=== PATIENT | male | born 1950 | race Caucasian/White ===

== ENCOUNTER 2018-07-13 14:35 | Inpatient (IN) ==
[2018-07-13] MEDS ORDERED: Vancomycin Inj 1 GM/200 ML PIGGYBACK IV.SIG ONE (18:24)
--- NOTE | 2018-07-13 18:45 | ED ---
HPI General Chief complaint: Skin/Abscess/Foreign Body Stated complaint: Medical Time Seen by Provider: 07/13/18 18:03 Source: patient and family Mode of arrival: wheelchair Limitations: no limitations History of Present Illness HPI narrative: 68-year-old male the presents to the ED for evaluation of possible infection to his chest. Per patient this started on Wednesday. Per patient he was seen in urgent care and started on Bactrim and antibiotic ointment. Per patient he continued to get worse so he went to the urgent care again today and told to come here. He has a significant history of CABG x4 on the beginning of June. Apparently on June 07, 2018. He states that his been doing well since except he had a kidney stone that had to be removed a week ago. He states that overall he has been doing well and he was cleared by his doctors to come here today told to splint application. Per patient he came here on Wednesday and ever since his been doing well except until Wednesday when the wound open it on his mid chest where he had a sternotomy. He states that it is slightly painful and there is purulent material coming out of it. Patient the pain is 4 out of 10. Per patient he has no fevers chills or sweats. He does have more discomfort in his chest. He states that the surgery was done [place] and he is currently visiting here for medication. No other medical issues at this time. No fevers chills or sweats. Related Data Home Medications Medication Instructions Recorded Confirmed atorvastatin 80 mg PO DAILY 07/13/18 07/13/18 carvedilol 6.25 mg PO BID 07/13/18 07/13/18 duloxetine 20 mg PO BID 07/13/18 07/13/18 metformin 500 mg PO BID 07/13/18 07/13/18 mupirocin calcium [Bactroban] 1 applic TOPICAL BID 07/13/18 07/13/18 nifedipine 30 mg PO DAILY 07/13/18 07/13/18 sitagliptin-metformin 1 tab PO BID 07/13/18 07/13/18 sulfamethoxazole-trimethoprim 1 tab PO BID 07/13/18 07/13/18 [Bactrim DS] Allergies Allergy/AdvReac Type Severity Reaction Status Date / Time bacitracin Allergy Rash, Verified 07/13/18 18:23 [From Neosporin Localized ([id number])] neomycin Allergy Rash, Verified 07/13/18 18:23 [From Neosporin Localized ([id number])] Penicillins Allergy Hives Verified 07/13/18 18:23 polymyxin B Allergy Rash, Verified 07/13/18 18:23 [From Neosporin Localized ([id number])] Review of Systems ROS: all other systems reviewed are negative [facility] History History Provided By: Patient Medical History Medical History Anxiety (Acute) Depression (Acute) History of kidney stones (Acute) Hypertension (Acute) Sleep apnea (Acute) Type 1 diabetes (Acute) Surgical History Surgical History S/P quadruple vessel bypass (Acute) Social History Social History Substance History: No History of Abuse Second Hand Smoke Exposure: No Smoking Status: Light tobacco smoker Tobacco Type: Cigarettes How Often Do You Have a Drink Containing Alcohol: Never Recent Travel in [facility] within the Last 8 Weeks: No Recent Out of Country Travel within the Last 8 Weeks: No Exam Narrative Exam Narrative: GENERAL: well appearing SKIN: Focused skin assessment warm/dry. Patient has an area of erythema and purulence noted on the chest on the inferior aspect of where he has a sternotomy scar. Purulence coming out of it. Tender to touch. Erythema noted around it. Patient does have green stuff coming from the wound. Cannot see the bone. Does appear to be slightly deep. HEAD: Atraumatic. Normocephalic. EYES: Pupils equal and round. No scleral icterus. No injection or drainage. ENT: No nasal bleeding or discharge. Mucous membranes pink and moist. Tongue is midline. No Uvula deviation. NECK: Trachea midline. No JVD. CARDIOVASCULAR: Regular rate and rhythm. No murmur appreciated. RESPIRATORY: No accessory muscle use. Clear to auscultation. Breath sounds equal bilaterally. GASTROINTESTINAL: Abdomen soft, non-tender, nondistended. Hepatic and splenic margins not palpable. MUSCULOSKELETAL: No obvious deformities. No clubbing. No cyanosis. No edema. Full range of motion of the upper and lower extremities bilaterally. 2+ pulses bilaterally. NEUROLOGICAL: Awake and alert. No obvious cranial nerve deficits. Motor grossly within normal limits. Normal speech. PSYCHIATRIC: Appropriate mood and affect; insight and judgment normal. Course Initial Documented Vital Signs Temperature 99.2 F 07/13/18 15:08 Pulse Rate 89 07/13/18 15:08 Respiratory Rate 16 07/13/18 15:08 Blood Pressure 100/53 L 07/13/18 15:08 Pulse Oximetry 97 07/13/18 15:08 Last Documented Vital Signs Temperature 99.2 F 07/14/18 04:00 Pulse Rate 86 07/14/18 14:19 Respiratory Rate 16 07/14/18 14:19 Blood Pressure 145/67 H 07/14/18 06:00 Pulse Oximetry 92 L 07/14/18 06:00 Medical Decision Making CRAIG Attestation CRAIG supervised visit: Yes Attestation: I, Dr. Jarvis, have reviewed the advance practice practitioner's documentation and am in agreement, met with the patient face to face, made the diagnosis, and the medical decision making was done by me. *My assessment and Findings: Patient is a 68-year-old male, on vacation, who presents with complaint of wound to his recent sternotomy site. He has been hemodynamically stable but workup is consistent with sepsis for which he has been started on broad-spectrum antibiotics. CT of the chest did not reveal fluid collection. I spoke with Dr. Gray, CT surgeon command and control specialist, who agreed with our plan for admission and antibiotics. Patient was then admitted to the ICU for further monitoring. MDM Narrative Medical decision making narrative: 68-year-old male the presents to the ED for evaluation of wound infection. Patient was properly examined and was found to have signs and symptoms consistent appears to be infected wound. Patient will start IV antibiotics. Labs and imaging ordered. Case discussed with my attending Dr. Jarvis who evaluated the patient and agrees with plan. Labs and imaging show what appears to be sepsis. CT did not show any sign of induration but does show signs of infection. Case discussed with Dr. Fields by my attending Dr. Jarvis who agrees the patient should be admitted for IV antibiotics. No surgery at this time. Case discussed with Dr. Sotelo who agrees to admission to her service. Patient was started on Zosyn and Vanco. Given pain medication. Understands reasons for admission. Medical Screen Exam Complete: Yes Emergency Medical Condition: Yes Differential Diagnosis Differential Diagnosis: Postsurgical infection versus wound infection versus abscess Medical Records Medical records reviewed: Yes I reviewed the patient's medical records. Lab Data Lab results reviewed: Yes I reviewed the patient's lab results. Result diagrams: 07/14/18 04:36 07/14/18 04:36 Lab Results 07/13/18 07/13/18 07/13/18 Range/Units 18:50 18:50 18:50 WBC 16.6 H (4.0-11.0) th/mm3 RBC 3.88 L (4.50-5.90) mil/mm3 Hgb 11.6 L (13.0-17.0) gm/dL Hct 34.9 L (39.0-51.0) % MCV 89.8 (80.0-100.0) fL MCH 29.9 (27.0-34.0) pg MCHC 33.3 (32.0-36.0) % RDW 15.1 (11.6-17.2) % Plt Count 381 (150-450) th/mm3 MPV 6.8 L (7.0-11.0) fL Prelim Diff (Auto) Neut % (Auto) 80.1 H (16.0-70.0) % Lymph % (Auto) 8.7 L (9.0-44.0) % [place] % (Auto) 10.3 H (0.0-8.0) % Eos % (Auto) 0.6 (0.0-4.0) % Baso % (Auto) 0.3 (0.0-2.0) % Neut # (Auto) 13.3 H (1.8-7.7) th/mm3 Lymph # (Auto) 1.4 (1.0-4.8) th/mm3 [place] # (Auto) 1.7 H (0.0-0.9) th/mm3 Eos # (Auto) 0.1 (0.0-0.4) th/mm3 Baso # (Auto) 0.1 (0.0-0.2) th/mm3 WBC Differential . Seg Neuts % (Manual) (16-70) % Lymphocytes % (Manual) (9-44) % Monocytes % (Manual) (0-8) % Eosinophils % (Manual) (0-4) % Basophils % (Manual) (0-2) % Abs Neuts (Manual) (1.8-7.7) th/mm3 Differential Comment Auto diff final Platelet Estimate (Normal) Platelet Morphology (Normal) RBC Morphology (Normal) PT 10.8 (9.8-11.6) sec INR 1.1 Ratio APTT 27.6 (24.3-30.1) sec Sodium 135 L (136-145) meq/L Potassium 4.8 (3.5-5.1) meq/L Chloride 103 (98-107) meq/L Carbon Dioxide 22.8 (21.0-32.0) meq/L Anion Gap 9 (5-15) meq/L BUN 20 H (7-18) mg/dL Creatinine 1.41 H (0.60-1.30) mg/dL Estimated GFR 50 L (>89) mL/min POC Glucose (68-110) mg/dl Random Glucose 120 H (74-106) mg/dL Lactic Acid (0.4-2.0) mmol/L Calcium 9.2 (8.5-10.1) mg/dL Phosphorus (2.5-4.9) mg/dL Magnesium (1.5-2.5) mg/dL Total Bilirubin 0.4 (0.2-1.0) mg/dL AST 23 (15-37) U/L ALT 15 (12-78) U/L Alkaline Phosphatase 167 H (45-117) U/L Troponin I Less than 0.02 L (0.02-0.05) ng/mL Total Protein 8.1 (6.4-8.2) g/dL Albumin 3.2 L (3.4-5.0) g/dL Prealbumin (20-40) mg/dL Nasal Screen MRSA (PCR) (Negative) 07/13/18 07/13/18 07/13/18 Range/Units 18:50 21:25 23:10 WBC (4.0-11.0) th/mm3 RBC (4.50-5.90) mil/mm3 Hgb (13.0-17.0) gm/dL Hct (39.0-51.0) % MCV (80.0-100.0) fL MCH (27.0-34.0) pg MCHC (32.0-36.0) % RDW (11.6-17.2) % Plt Count (150-450) th/mm3 MPV (7.0-11.0) fL Prelim Diff (Auto) Neut % (Auto) (16.0-70.0) % Lymph % (Auto) (9.0-44.0) % [place] % (Auto) (0.0-8.0) % Eos % (Auto) (0.0-4.0) % Baso % (Auto) (0.0-2.0) % Neut # (Auto) (1.8-7.7) th/mm3 Lymph # (Auto) (1.0-4.8) th/mm3 [place] # (Auto) (0.0-0.9) th/mm3 Eos # (Auto) (0.0-0.4) th/mm3 Baso # (Auto) (0.0-0.2) th/mm3 WBC Differential Seg Neuts % (Manual) (16-70) % Lymphocytes % (Manual) (9-44) % Monocytes % (Manual) (0-8) % Eosinophils % (Manual) (0-4) % Basophils % (Manual) (0-2) % Abs Neuts (Manual) (1.8-7.7) th/mm3 Differential Comment Platelet Estimate (Normal) Platelet Morphology (Normal) RBC Morphology (Normal) PT (9.8-11.6) sec INR Ratio APTT (24.3-30.1) sec Sodium (136-145) meq/L Potassium (3.5-5.1) meq/L Chloride (98-107) meq/L Carbon Dioxide (21.0-32.0) meq/L Anion Gap (5-15) meq/L BUN (7-18) mg/dL Creatinine (0.60-1.30) mg/dL Estimated GFR (>89) mL/min POC Glucose (68-110) mg/dl Random Glucose (74-106) mg/dL Lactic Acid 3.2 H 1.6 (0.4-2.0) mmol/L Calcium (8.5-10.1) mg/dL Phosphorus (2.5-4.9) mg/dL Magnesium (1.5-2.5) mg/dL Total Bilirubin (0.2-1.0) mg/dL AST (15-37) U/L ALT (12-78) U/L Alkaline Phosphatase (45-117) U/L Troponin I (0.02-0.05) ng/mL Total Protein (6.4-8.2) g/dL Albumin (3.4-5.0) g/dL Prealbumin (20-40) mg/dL Nasal Screen MRSA (PCR) Not detected (Negative) 07/14/18 07/14/18 07/14/18 Range/Units 04:36 04:36 04:36 WBC 22.9 H (4.0-11.0) th/mm3 RBC 3.83 L (4.50-5.90) mil/mm3 Hgb 11.2 L (13.0-17.0) gm/dL Hct 34.7 L (39.0-51.0) % MCV 90.6 (80.0-100.0) fL MCH 29.3 (27.0-34.0) pg MCHC 32.4 (32.0-36.0) % RDW 14.8 (11.6-17.2) % Plt Count 351 (150-450) th/mm3 MPV 6.3 L (7.0-11.0) fL Prelim Diff (Auto) Slide review pending Neut % (Auto) 85.1 H (16.0-70.0) % Lymph % (Auto) 4.9 L (9.0-44.0) % [place] % (Auto) 9.7 H (0.0-8.0) % Eos % (Auto) 0.1 (0.0-4.0) % Baso % (Auto) 0.2 (0.0-2.0) % Neut # (Auto) 19.5 H (1.8-7.7) th/mm3 Lymph # (Auto) 1.1 (1.0-4.8) th/mm3 [place] # (Auto) 2.2 H (0.0-0.9) th/mm3 Eos # (Auto) 0.0 (0.0-0.4) th/mm3 Baso # (Auto) 0.0 (0.0-0.2) th/mm3 WBC Differential Manual diff final Seg Neuts % (Manual) 89 H (16-70) % Lymphocytes % (Manual) 4 L (9-44) % Monocytes % (Manual) 5 (0-8) % Eosinophils % (Manual) 1 (0-4) % Basophils % (Manual) 1 (0-2) % Abs Neuts (Manual) 20.4 H (1.8-7.7) th/mm3 Differential Comment . Platelet Estimate Normal (Normal) Platelet Morphology Normal (Normal) RBC Morphology Normal (Normal) PT 11.0 (9.8-11.6) sec INR 1.1 Ratio APTT 28.2 (24.3-30.1) sec Sodium 143 (136-145) meq/L Potassium 4.1 (3.5-5.1) meq/L Chloride 108 H (98-107) meq/L Carbon Dioxide 25.4 (21.0-32.0) meq/L Anion Gap 10 (5-15) meq/L BUN 18 (7-18) mg/dL Creatinine 1.17 (0.60-1.30) mg/dL Estimated GFR 62 L (>89) mL/min POC Glucose (68-110) mg/dl Random Glucose 135 H (74-106) mg/dL Lactic Acid (0.4-2.0) mmol/L Calcium 8.1 L D (8.5-10.1) mg/dL Phosphorus 3.7 (2.5-4.9) mg/dL Magnesium 2.1 (1.5-2.5) mg/dL Total Bilirubin 0.5 (0.2-1.0) mg/dL AST 10 L (15-37) U/L ALT 12 (12-78) U/L Alkaline Phosphatase 147 H (45-117) U/L Troponin I (0.02-0.05) ng/mL Total Protein 7.1 D (6.4-8.2) g/dL Albumin 2.9 L (3.4-5.0) g/dL Prealbumin 13 L (20-40) mg/dL Nasal Screen MRSA (PCR) (Negative) 07/14/18 07/14/18 07/14/18 Range/Units 04:36 08:00 13:13 WBC (4.0-11.0) th/mm3 RBC (4.50-5.90) mil/mm3 Hgb (13.0-17.0) gm/dL Hct (39.0-51.0) % MCV (80.0-100.0) fL MCH (27.0-34.0) pg MCHC (32.0-36.0) % RDW (11.6-17.2) % Plt Count (150-450) th/mm3 MPV (7.0-11.0) fL Prelim Diff (Auto) Neut % (Auto) (16.0-70.0) % Lymph % (Auto) (9.0-44.0) % [place] % (Auto) (0.0-8.0) % Eos % (Auto) (0.0-4.0) % Baso % (Auto) (0.0-2.0) % Neut # (Auto) (1.8-7.7) th/mm3 Lymph # (Auto) (1.0-4.8) th/mm3 [place] # (Auto) (0.0-0.9) th/mm3 Eos # (Auto) (0.0-0.4) th/mm3 Baso # (Auto) (0.0-0.2) th/mm3 WBC Differential Seg Neuts % (Manual) (16-70) % Lymphocytes % (Manual) (9-44) % Monocytes % (Manual) (0-8) % Eosinophils % (Manual) (0-4) % Basophils % (Manual) (0-2) % Abs Neuts (Manual) (1.8-7.7) th/mm3 Differential Comment Platelet Estimate (Normal) Platelet Morphology (Normal) RBC Morphology (Normal) PT (9.8-11.6) sec INR Ratio APTT (24.3-30.1) sec Sodium (136-145) meq/L Potassium (3.5-5.1) meq/L Chloride (98-107) meq/L Carbon Dioxide (21.0-32.0) meq/L Anion Gap (5-15) meq/L BUN (7-18) mg/dL Creatinine (0.60-1.30) mg/dL Estimated GFR (>89) mL/min POC Glucose 140 H 125 H (68-110) mg/dl Random Glucose (74-106) mg/dL Lactic Acid 0.7 (0.4-2.0) mmol/L Calcium (8.5-10.1) mg/dL Phosphorus (2.5-4.9) mg/dL Magnesium (1.5-2.5) mg/dL Total Bilirubin (0.2-1.0) mg/dL AST (15-37) U/L ALT (12-78) U/L Alkaline Phosphatase (45-117) U/L Troponin I (0.02-0.05) ng/mL Total Protein (6.4-8.2) g/dL Albumin (3.4-5.0) g/dL Prealbumin (20-40) mg/dL Nasal Screen MRSA (PCR) (Negative) 07/14/18 Range/Units 16:20 WBC (4.0-11.0) th/mm3 RBC (4.50-5.90) mil/mm3 Hgb (13.0-17.0) gm/dL Hct (39.0-51.0) % MCV (80.0-100.0) fL MCH (27.0-34.0) pg MCHC (32.0-36.0) % RDW (11.6-17.2) % Plt Count (150-450) th/mm3 MPV (7.0-11.0) fL Prelim Diff (Auto) Neut % (Auto) (16.0-70.0) % Lymph % (Auto) (9.0-44.0) % [place] % (Auto) (0.0-8.0) % Eos % (Auto) (0.0-4.0) % Baso % (Auto) (0.0-2.0) % Neut # (Auto) (1.8-7.7) th/mm3 Lymph # (Auto) (1.0-4.8) th/mm3 [place] # (Auto) (0.0-0.9) th/mm3 Eos # (Auto) (0.0-0.4) th/mm3 Baso # (Auto) (0.0-0.2) th/mm3 WBC Differential Seg Neuts % (Manual) (16-70) % Lymphocytes % (Manual) (9-44) % Monocytes % (Manual) (0-8) % Eosinophils % (Manual) (0-4) % Basophils % (Manual) (0-2) % Abs Neuts (Manual) (1.8-7.7) th/mm3 Differential Comment Platelet Estimate (Normal) Platelet Morphology (Normal) RBC Morphology (Normal) PT (9.8-11.6) sec INR Ratio APTT (24.3-30.1) sec Sodium (136-145) meq/L Potassium (3.5-5.1) meq/L Chloride (98-107) meq/L Carbon Dioxide (21.0-32.0) meq/L Anion Gap (5-15) meq/L BUN (7-18) mg/dL Creatinine (0.60-1.30) mg/dL Estimated GFR (>89) mL/min POC Glucose 131 H (68-110) mg/dl Random Glucose (74-106) mg/dL Lactic Acid (0.4-2.0) mmol/L Calcium (8.5-10.1) mg/dL Phosphorus (2.5-4.9) mg/dL Magnesium (1.5-2.5) mg/dL Total Bilirubin (0.2-1.0) mg/dL AST (15-37) U/L ALT (12-78) U/L Alkaline Phosphatase (45-117) U/L Troponin I (0.02-0.05) ng/mL Total Protein (6.4-8.2) g/dL Albumin (3.4-5.0) g/dL Prealbumin (20-40) mg/dL Nasal Screen MRSA (PCR) (Negative) Imaging Data Attestation: I personally reviewed and interpreted this imaging study as follows : Radiologist's impression: Chest X-Ray 07/13/18 18:24 CONCLUSION: 1. Intact median sternotomy wires. 2. Mild bibasilar airspace disease, likely atelectasis. Chest CT 07/13/18 18:26 CONCLUSION: 1. Scattered areas of suspected atelectasis or consolidation as described above being more prominent on the left. 2. Induration in subcutaneous fat anteriorly over the sternal region. This can be correlated with the timing of the prior sternotomy. A focal fluid collection or abscess is not seen. 3. Nonspecific mildly prominent lymph node in the left tracheobronchial region. It is thought this could be followed. 4. Mild hiatal hernia. Discharge Plan Discharge Disposition Patient Disposition: 30 Still Patient Discharge Details Diagnosis: Sepsis, Postoperative infection of wound of sternum Physicians Team ED Provider: Margo Jarvis ED Midlevel Provider: Zeb Edouard Primary Care Provider: Primary Care Physici,No Attending Provider: Oracio Malloy Other Providers: Wilber Lynn Cary Status ED Status: Left Department Discharge Information Discharge Date/Time: 07/13/18 23:10
[2018-07-13] MEDS ORDERED: Vancomycin Inj 1,000 MG in Sodium Chlor 0.9% Inj 250 ML IV.SIG ONE (19:00)
--- NOTE | 2018-07-13 19:21 | XR ---
EXAM DATE: 07/13/2018 6:24 PM EDT AGE/SEX: 68 years / Male INDICATIONS: Patient had CABG 5 weeks ago. Complains of incision opening and pain near incision. CLINICAL DATA: This is the patient's initial encounter. Patient reports that signs and symptoms have been present for 1 day and indicates a pain score of 6/10. MEDICAL/SURGICAL HISTORY: None. CABG. COMPARISON: No prior exams available for comparison. FINDINGS: Median sternotomy wires which appear intact. Minimal bibasilar airspace disease. No pneumothorax. Car diomediastinal contours are within normal limits. Bony thorax is intact. CONCLUSION: 1. Intact median sternotomy wires. 2. Mild bibasilar airspace disease, likely atelectasis. Electronically signed by: Angel Mendez MD 07/13/2018 7:19 PM EDT
[2018-07-13 19:29] LABS: Baso # (Auto) 0.1 th/mm3 (0.0-0.2); Baso % (Auto) 0.3 % (0.0-2.0); Eos # (Auto) 0.1 th/mm3 (0.0-0.4); Eos % (Auto) 0.6 % (0.0-4.0); Hematocrit 34.9 % (39.0-51.0); Hemoglobin 11.6 gm/dL (13.0-17.0); Lymph # (Auto) 1.4 th/mm3 (1.0-4.8); Lymph % (Auto) 8.7 % (9.0-44.0); Mean Corpuscular HGB Conc 33.3 % (32.0-36.0); Mean Corpuscular Hemoglobin 29.9 pg (27.0-34.0); Mean Corpuscular Volume 89.8 fL (80.0-100.0); Mean Platelet Volume 6.8 fL (7.0-11.0); Mono # (Auto) 1.7 th/mm3 (0.0-0.9); Mono % (Auto) 10.3 % (0.0-8.0); Neut # (Auto) 13.3 th/mm3 (1.8-7.7); Neut % (Auto) 80.1 % (16.0-70.0); Platelet Count 381 th/mm3 (150-450); Red Blood Count 3.88 mil/mm3 (4.50-5.90); Red Cell Distribution Width 15.1 % (11.6-17.2); White Blood Count 16.6 th/mm3 (4.0-11.0)
[2018-07-13] MEDS ORDERED: Morphine Inj 4 MG/ML Vial IV.PUSH ONE (19:32)
[2018-07-13 19:39] LABS: Activated Partial Thrombo Time 27.6 sec (24.3-30.1); INR 1.1 Ratio; Prothrombin Time 10.8 sec (9.8-11.6)
[2018-07-13 19:41] LABS: Alanine Aminotransferase 15 U/L (12-78)
[2018-07-13 19:45] LABS: Alkaline Phosphatase 167 U/L (45-117); Total Protein 8.1 g/dL (6.4-8.2)
[2018-07-13 19:54] LABS: Albumin 3.2 g/dL (3.4-5.0); Anion Gap 9 meq/L (5-15); Aspartate Aminotransferase 23 U/L (15-37); Blood Urea Nitrogen 20 mg/dL (7-18); Calcium 9.2 mg/dL (8.5-10.1); Carbon Dioxide 22.8 meq/L (21.0-32.0); Chloride 103 meq/L (98-107); Glomerular Filtration Rate 50 mL/min (>89); Glucose,Random 120 mg/dL (74-106); Potassium 4.8 meq/L (3.5-5.1); Sodium 135 meq/L (136-145)
[2018-07-13] MEDS ORDERED: Sodium Chlor 0.9% Inj 500 ML IV.SIG SCH (20:00)
[2018-07-13] MEDS ORDERED: HYDROmorphone PF Inj 2 MG/ML Vial IV.PUSH ONE (20:53)
--- NOTE | 2018-07-13 20:55 | CT ---
EXAM DATE: 07/13/2018 8:13 PM EDT AGE/SEX: 68 years / Male INDICATIONS: Left side chest and epigastric pain. CLINICAL DATA: This is the patient's initial encounter. Patient reports that signs and symptoms have been present for 3 days and indicates a pain score of 4/10. MEDICAL/SURGICAL HISTORY: Hypertension. Diabetes. CABG. RADIATION DOSE: 17.40 CTDI (mGy) COMPARISON: No prior exams available for comparison. TECHNIQUE: Multiple contiguous axial images were obtained through the chest during bolus infusion of 40 ml Omnipaque 350 (iohexol) nonionic water-soluble contrast as a single exam dose. Images were obtained in suspended respiration using multiple row detector helical technique. Using automated exp osure control and adjustment of the mA and/or kV according to patient size, radiation dose was kept a s low as reasonably achievable to obtain optimal diagnostic quality images. DICOM format image data is available electronically for review and comparison. FINDINGS: Lungs: There is mild increased density at the posterior lateral left upper lung. There is increased linear density seen in the left lingula. There is consolidation or atelectasis at the posterior lower lobes bilaterally being more prominent on the left. Mediastinum: The patient is status post sternotomy. Calcifications are seen at the [place] coronary a rteries. There is a mildly prominent lymph nodes in the left tracheobronchial region measuring 1.7 x 0.9 cm. This is nonspecific. Pleurae: There is a minimal left pleural effusion. Axillae: Unremarkable. Bony Structures: Unremarkable. Miscellaneous: The examination was extended to include the upper abdomen, and both adrenal glands ar e normal in size and configuration. There is induration seen in the subcutis fat anterior to the ster num. There is a mild hiatal hernia present. CONCLUSION: 1. Scattered areas of suspected atelectasis or consolidation as described above being more prominent on the left. 2. Induration in subcutaneous fat anteriorly over the sternal region. This can be correlated with th e timing of the prior sternotomy. A focal fluid collection or abscess is not seen. 3. Nonspecific mildly prominent lymph node in the left tracheobronchial region. It is thought this c ould be followed. 4. Mild hiatal hernia. Electronically signed by: Willy Juarez MD 07/13/2018 8:54 PM EDT
--- NOTE | 2018-07-13 21:41 | P.HPCC ---
History of Present Illness Primary Care Physician: No Primary Care Physician History of Present Illness: 68-year-old male the presents for evaluation of possible infection to his chest. Per patient this started on Wednesday. Per patient he was seen in urgent care and started on Bactrim and antibiotic ointment. Per patient he continued to get worse so he went to the urgent care again today and told to come here. He has a significant history of CABG x4 in the beginning of June 07, 2018. He states that his been doing well since except he had a kidney stone that had to be removed a week ago. He states that overall he has been doing well and he was cleared by his doctors to come here today told to splint application. Per patient he came here on Wednesday and ever since his been doing well except until Wednesday when the wound open it on his mid chest where he had a sternotomy. He states that it is slightly painful and there is purulent material coming out of it. Patient the pain is 4 out of 10. Per patient he has no fevers chills or sweats. He does have more discomfort in his chest. He states that the surgery [place] and he is currently visiting here for medication. No other medical issues at this time. No fevers chills or sweats. Inpatient Certification: I certify that the inpatient services were ordered in accordance with Medicare regulations governing the order. This includes certification that hospital inpatient services are reasonable and necessary and in the case of services not specified as inpatient-only under 42 CFR 419.22(n), that they are appropriately provided as inpatient services in accordance to with the 2-midnight benchmark under 43 CFR 412.3(e) Review of Systems All other systems reviewed negative except as stated in HPI PMFSH - History History Provided By: Patient - Medical History Medical History: Medical History (Last Updated 07/13/18 @ 20:00 by Marce Singh RN) Anxiety Depression History of kidney stones Hypertension Sleep apnea Type 1 diabetes - Surgical History Surgical History: Surgical History (Last Updated 07/13/18 @ 19:11 by Shanice Hobson RN) S/P quadruple vessel bypass - Tobacco History Tobacco Use In Past 30 Days: No Smoking Status: Light tobacco smoker Tobacco Type: Cigarettes - Alcohol History How Often Do You Have a Drink Containing Alcohol: Never - Substance Use History Substance History: No History of Abuse - Travel History Recent Travel in the [facility] Within the Last 8 Weeks: No Recent Travel Out of the Country Within the Last 8 Weeks: No - Immunization History Tetanus Immunization: >5 Years Medications and Allergies Active Medications: Active Medications Sodium Chloride (Ns Inj) 500 mls @ 0 mls/hr IV.SIG BOLUS BERNABE Last Infusion: 07/13/18 21:24 Dose: Infused Allergies Allergy/AdvReac Type Severity Reaction Status Date / Time bacitracin Allergy Rash, Verified 07/13/18 18:23 [From Neosporin Localized ([id number])] neomycin Allergy Rash, Verified 07/13/18 18:23 [From Neosporin Localized ([id number])] Penicillins Allergy Hives Verified 07/13/18 18:23 polymyxin B Allergy Rash, Verified 07/13/18 18:23 [From Neosporin Localized ([id number])] Home Medications Medication Instructions Recorded Confirmed Type atorvastatin 80 mg PO DAILY 07/13/18 07/13/18 History carvedilol 6.25 mg PO BID 07/13/18 07/13/18 History duloxetine 20 mg PO BID 07/13/18 07/13/18 History metformin 500 mg PO BID 07/13/18 07/13/18 History mupirocin calcium [Bactroban] 1 applic TOPICAL BID 07/13/18 07/13/18 History nifedipine 30 mg PO DAILY 07/13/18 07/13/18 History sitagliptin-metformin 1 tab PO BID 07/13/18 07/13/18 History sulfamethoxazole-trimethoprim 1 tab PO BID 07/13/18 07/13/18 History [Bactrim DS] Results - Labs CBC & Chem 7: 07/13/18 18:50 07/13/18 18:50 Labs: Short CBC 07/13/18 Range/Units 18:50 WBC 16.6 H (4.0-11.0) th/mm3 Hgb 11.6 L (13.0-17.0) gm/dL Hct 34.9 L (39.0-51.0) % Plt Count 381 (150-450) th/mm3 BMP 07/13/18 18:50 Sodium 135 L Potassium 4.8 Chloride 103 Carbon Dioxide 22.8 BUN 20 H Creatinine 1.41 H Calcium 9.2 Cardiac Enzymes 07/13/18 Range/Units 18:50 Troponin I Less than 0.02 L (0.02-0.05) ng/mL Liver Function 07/13/18 Range/Units 18:50 Total Bilirubin 0.4 (0.2-1.0) mg/dL AST 23 (15-37) U/L ALT 15 (12-78) U/L Alkaline Phosphatase 167 H (45-117) U/L Albumin 3.2 L (3.4-5.0) g/dL - Imaging Impressions Chest X-Ray 07/13/18 18:24 CONCLUSION: 1. Intact median sternotomy wires. 2. Mild bibasilar airspace disease, likely atelectasis. Chest CT 07/13/18 18:26 CONCLUSION: 1. Scattered areas of suspected atelectasis or consolidation as described above being more prominent on the left. 2. Induration in subcutaneous fat anteriorly over the sternal region. This can be correlated with the timing of the prior sternotomy. A focal fluid collection or abscess is not seen. 3. Nonspecific mildly prominent lymph node in the left tracheobronchial region. It is thought this could be followed. 4. Mild hiatal hernia. Exam Vital signs: Vital Signs 07/13/18 15:08 07/13/18 18:24 07/13/18 19:45 Temperature 99.2 F Pulse Rate 89 98 H Respiratory Rate 16 16 Blood Pressure 100/53 L 170/82 H Pulse Oximetry 97 95 95 07/13/18 21:28 Temperature Pulse Rate 98 H Respiratory Rate 18 Blood Pressure 156/66 H Pulse Oximetry 97 Intake & Output 07/13/18 07/13/18 07/14/18 06:59 18:59 06:59 Intake Total 850 / 850 Balance 850 / 850 Weight 112 kg Intake: IV 850 / 850 Maxipime Inj 1,000 MG In NS Inj 100 / 100 100 ML @ 200 mls/hr IV.SIG ONCE ONE Rx#:[id number] NS Inj 500 ML @ Wide Open IV. 500 / 500 SIG BOLUS BERNABE Rx#:[id number] Vancomycin Inj 1,000 MG In NS 250 / 250 Inj 250 ML @ 250 mls/hr IV.SIG ONCE ONE Rx#:[id number] - Constitutional no acute distress - Routine HEENT Exam Head: Present: normocephalic, atraumatic - Routine Neck Exam Present: supple, full ROM, normal carotid upstroke. Absent: JVD, carotid bruit - Routine Respiratory Exam Absent: accessory muscle use, rhonchi, stridor, wheezes, crackles - Routine Cardiovascular Exam Present: RRR, S1, S2 - Routine Abdominal Exam Present: soft, normoactive bowel sounds. Absent: tenderness, distended, rebound - Routine Extremities Exam Absent: cyanosis, clubbing, edema - Routine Skin Exam Present: intact. Absent: cyanosis - Routine Neurological Exam Present: alert, oriented X3, moving all extremities Septic Shock Reassessment Septic shock perfusion: reassessment completed Caprini VTE Risk Assessment Caprini VTE Risk Assessment: Moderate/High Risk (score >= 2) Caprini Risk Assessment Model: Point Value = 1 Point Value = 2 Point Value = 3 Point Value = 5 Age 41-60 Minor surgery BMI > 25 kg/m2 Swollen legs Varicose veins or History of unexplained or recurrent spontaneous Oral contraceptives or hormone replacement Sepsis (< 1 month) Serious lung disease, including pneumonia (< 1 month) Abnormal pulmonary function Acute myocardial infarction Congestive heart failure (< 1 month) History of inflammatory bowel disease Medical patient at bed rest Age 61-74 Arthroscopic surgery Major open surgery (> 45 min) Laparoscopic surgery (> 45 min) Malignancy Confined to bed (> 72 hours) Immobilizing plaster cast Central venous access Age >= 75 History of VTE Family history of VTE Factor V Leiden Prothrombin [id number] Lupus anticoagulant Anticardiolipin antibodies Elevated serum homocysteine Heparin-induced thrombocytopenia Other congenital or acquired thrombophilia Stroke (< 1 month) Elective arthroplasty Hip, pelvis, or leg fracture Acute spinal cord injury (< 1 month) Prophylaxis Regimen: Total Risk Factor Score Risk Level Prophylaxis Regimen 0-1 Low Early ambulation 2 Moderate Order ONE of the following: *Sequential Compression Device (SCD) *Heparin 5000 units SQ BID 3-4 Higher Order ONE of the following medications: *Heparin 5000 units SQ TID *Enoxaparin/Lovenox 40 mg SQ daily (WT < 150 kg, CrCl > 30 mL/min) *Enoxaparin/Lovenox 30 mg SQ daily (WT < 150 kg, CrCl > 10-29 mL/min) *Enoxaparin/Lovenox 30 mg SQ BID (WT < 150 kg, CrCl > 30 mL/min) AND/OR *Sequential Compression Device (SCD) 5 or more Highest Order ONE of the following medications: *Heparin 5000 units SQ TID (Preferred with Epidurals) *Enoxaparin/Lovenox 40 mg SQ daily (WT < 150 kg, CrCl > 30 mL/min) *Enoxaparin/Lovenox 30 mg SQ daily (WT < 150 kg, CrCl > 10-29 mL/min) *Enoxaparin/Lovenox 30 mg SQ BID (WT < 150 kg, CrCl > 30 mL/min) AND *Sequential Compression Device (SCD) Assessment and Plan - Assessment and Plan Plan: Sternal wound infection -Cefepime and vancomycin -Blood cultures to follow -De-escalate antibiotics per sensitivity -Infectious disease consultation Coronary artery disease -Status post CABG 06/2018 -Atorvastatin -Coreg Depressions -Cymbalta Diabetes mellitus -Lantus and insulin sliding scale DVT GI prophylaxis -Teds SCDs -Early aggressive mobilization -Lovenox -Pepcid 35 minutes of critical care
[2018-07-13] MEDS ORDERED: Acetaminophen 325 MG Tablet PO PRN (21:42)
[2018-07-13] MEDS ORDERED: Temazepam 15 MG Capsule PO PRN (21:42)
[2018-07-13] MEDS ORDERED: Bisacodyl 10 MG Supp RECTAL PRN (21:42)
[2018-07-13] MEDS ORDERED: Vancomycin Consult Pharmacy OTHER PRN (21:49)
[2018-07-13] MEDS ORDERED: Dextrose 50% in Water 50 ML Vial IV.PUSH PRN (21:51)
[2018-07-13] MEDS: Sod Chloride 0.9% Inj 1,000 ML IV.CONT SCH (22:42)
[2018-07-14] MEDS: Enoxaparin Inj 40 MG/0.4 ML Syringe SQ SCH ×2 (00:57→22:47)
[2018-07-14] MEDS ORDERED: Vancomycin Inj 1,500 MG in Sodium Chlor 0.9% Inj 500 ML IV.SIG ONE (01:00)
[2018-07-14] MEDS: HYDROmorphone PF Inj 2 MG/ML Vial IV.PUSH PRN ×3 (02:57→21:06)
[2018-07-14] MEDS: Chlorhexidine Gluconate 2% 1 Pack (2 Cloths) TOPICAL SCH (03:00)
[2018-07-14] MEDS ORDERED: Chlorhexidine Gluconate 2% 1 Pack (2 Cloths) TOPICAL PRN (04:00)
[2018-07-14 04:54] LABS: Baso % (Auto) 0.2 % (0.0-2.0); Eos % (Auto) 0.1 % (0.0-4.0); Hematocrit 34.7 % (39.0-51.0); Hemoglobin 11.2 gm/dL (13.0-17.0); Lymph # (Auto) 1.1 th/mm3 (1.0-4.8); Lymph % (Auto) 4.9 % (9.0-44.0); Mean Corpuscular HGB Conc 32.4 % (32.0-36.0); Mean Corpuscular Hemoglobin 29.3 pg (27.0-34.0); Mean Corpuscular Volume 90.6 fL (80.0-100.0); Mean Platelet Volume 6.3 fL (7.0-11.0); Mono # (Auto) 2.2 th/mm3 (0.0-0.9); Mono % (Auto) 9.7 % (0.0-8.0); Neut # (Auto) 19.5 th/mm3 (1.8-7.7); Neut % (Auto) 85.1 % (16.0-70.0); Platelet Count 351 th/mm3 (150-450); Red Blood Count 3.83 mil/mm3 (4.50-5.90); Red Cell Distribution Width 14.8 % (11.6-17.2); White Blood Count 22.9 th/mm3 (4.0-11.0)
[2018-07-14 05:05] LABS: Activated Partial Thrombo Time 28.2 sec (24.3-30.1); INR 1.1 Ratio
[2018-07-14 05:19] LABS: Alanine Aminotransferase 12 U/L (12-78); Albumin 2.9 g/dL (3.4-5.0); Anion Gap 10 meq/L (5-15); Aspartate Aminotransferase 10 U/L (15-37); Blood Urea Nitrogen 18 mg/dL (7-18); Calcium 8.1 mg/dL (8.5-10.1); Carbon Dioxide 25.4 meq/L (21.0-32.0); Chloride 108 meq/L (98-107); Glomerular Filtration Rate 62 mL/min (>89); Glucose,Random 135 mg/dL (74-106); Magnesium 2.1 mg/dL (1.5-2.5); Phosphorus 3.7 mg/dL (2.5-4.9); Potassium 4.1 meq/L (3.5-5.1); Sodium 143 meq/L (136-145)
[2018-07-14] MEDS: Sod Chloride 0.9% Inj 1,000 ML IV.CONT SCH (05:19)
[2018-07-14 05:24] LABS: Alkaline Phosphatase 147 U/L (45-117); Prealbumin 13 mg/dL (20-40); Total Protein 7.1 g/dL (6.4-8.2)
[2018-07-14 08:05] LABS: Eosinophils 1 % (0-4); Lymphocytes 4 % (9-44); Monocytes 5 % (0-8); Platelet Estimate Normal (Normal); Platelet Morphology Normal (Normal); RBC Morphology Normal (Normal)
[2018-07-14] MEDS: Insulin NovoLOG Aspart Correctional Sugar Inj SQ SCH ×4 (10:23→21:15)
[2018-07-14] MEDS: Carvedilol 6.25 MG Tablet PO SCH ×2 (10:24→21:08)
[2018-07-14] MEDS: Insulin Detemir Inj 1,000 UNIT/10 ML Vial SQ SCH (10:24)
[2018-07-14] MEDS: Senna/Docusate Sodium 8.6/50 MG Tablet PO SCH ×2 (10:25→21:12)
--- NOTE | 2018-07-14 10:32 | P.PN ---
Subjective Interval history: Follow-up for possible sternal wound infection. Patient is currently doing well. He underwent CABG in [facility] on June 07, 2018. He came to [place] for vacation. Currently patient is resting in bed. Denies any chest pain, shortness of breath, fever or chills. Physical Exam Vital signs: Vital Signs 07/13/18 15:08 07/13/18 18:24 07/13/18 19:45 Temperature 99.2 F Pulse Rate 89 98 H Respiratory Rate 16 16 Blood Pressure 100/53 L 170/82 H Pulse Oximetry 97 95 95 07/13/18 21:28 07/13/18 22:07 07/14/18 00:00 Temperature 99.1 F Pulse Rate 98 H 100 H 98 H Respiratory Rate 18 18 28 H Blood Pressure 156/66 H 160/70 H 153/79 H Pulse Oximetry 97 95 92 L 07/14/18 01:00 07/14/18 02:00 07/14/18 03:00 Temperature Pulse Rate 101 H 105 H 101 H Respiratory Rate 30 H 34 H 24 Blood Pressure 159/72 H 159/72 H 147/67 H Pulse Oximetry 95 94 L 92 L 07/14/18 04:00 07/14/18 05:00 07/14/18 06:00 Temperature 99.2 F Pulse Rate 101 H 98 H 101 H Respiratory Rate 20 20 32 H Blood Pressure 147/68 H 136/66 145/67 H Pulse Oximetry 92 L 93 L 92 L Intake & Output 07/13/18 07/14/18 07/14/18 18:59 06:59 18:59 Intake Total 2480 / 2480 Output Total 400 / 400 Balance 2080 / 2080 Weight 112 kg 121.4 kg Intake: IV 2480 / 2480 NS Inj 1,000 ML @ 124 mls/hr IV 1000 / 1000 .CONT .Q8H4M BERNABE Rx#:[id number] Maxipime Inj 1,000 MG In NS Inj 100 / 100 100 ML @ 200 mls/hr IV.SIG ONCE ONE Rx#:[id number] Maxipime Inj 2,000 MG In NS Inj 100 / 100 100 ML @ 200 mls/hr IV.SIG Q12H BERNABE Rx#:[id number] NS Inj 500 ML @ Wide Open IV. 500 / 500 SIG BOLUS BERNABE Rx#:[id number] Vancomycin Inj 1,000 MG In NS 250 / 250 Inj 250 ML @ 250 mls/hr IV.SIG ONCE ONE Rx#:[id number] Vancomycin Inj 1,500 MG In NS 530 / 530 Inj 500 ML @ 265 mls/hr IV.SIG ONCE ONE Rx#:[id number] Output: Urine 400 / 400 Other: # Bowel Movements 0 Weight On Admission 121.5 kg Narrative: GENERAL: Alert, oriented x3, NAD. SKIN: Warm and dry. Distal part of the sternal wound has a dressing on and some drainage noted. HEAD: Normocephalic. EYES: No scleral icterus. No injection or drainage. NECK: Supple, trachea midline. No JVD or lymphadenopathy. CARDIOVASCULAR: Regular rate and rhythm without murmurs, gallops, or rubs. RESPIRATORY: Breath sounds equal bilaterally. No accessory muscle use. GASTROINTESTINAL: Abdomen soft, non-tender, nondistended. MUSCULOSKELETAL: No cyanosis, or edema. BACK: Nontender without obvious deformity. No CVA tenderness. Results - Labs CBC & Chem 7: 07/14/18 04:36 07/14/18 04:36 Laboratory Results - last 24 hr 07/13/18 07/13/18 07/13/18 18:50 18:50 18:50 WBC 16.6 H RBC 3.88 L Hgb 11.6 L Hct 34.9 L MCV 89.8 MCH 29.9 MCHC 33.3 RDW 15.1 Plt Count 381 MPV 6.8 L Prelim Diff (Auto) Neut % (Auto) 80.1 H Lymph % (Auto) 8.7 L Norton % (Auto) 10.3 H Eos % (Auto) 0.6 Baso % (Auto) 0.3 Neut # (Auto) 13.3 H Lymph # (Auto) 1.4 Norton # (Auto) 1.7 H Eos # (Auto) 0.1 Baso # (Auto) 0.1 WBC Differential . Seg Neuts % (Manual) Lymphocytes % (Manual) Monocytes % (Manual) Eosinophils % (Manual) Basophils % (Manual) Abs Neuts (Manual) Differential Comment Auto diff final Platelet Estimate Platelet Morphology RBC Morphology PT 10.8 INR 1.1 APTT 27.6 Sodium 135 L Potassium 4.8 Chloride 103 Carbon Dioxide 22.8 Anion Gap 9 BUN 20 H Creatinine 1.41 H Estimated GFR 50 L POC Glucose Random Glucose 120 H Lactic Acid Calcium 9.2 Phosphorus Magnesium Total Bilirubin 0.4 AST 23 ALT 15 Alkaline Phosphatase 167 H Troponin I Less than 0.02 L Total Protein 8.1 Albumin 3.2 L Prealbumin Nasal Screen MRSA (PCR) 07/13/18 07/13/18 07/13/18 18:50 21:25 23:10 WBC RBC Hgb Hct MCV MCH MCHC RDW Plt Count MPV Prelim Diff (Auto) Neut % (Auto) Lymph % (Auto) Norton % (Auto) Eos % (Auto) Baso % (Auto) Neut # (Auto) Lymph # (Auto) Norton # (Auto) Eos # (Auto) Baso # (Auto) WBC Differential Seg Neuts % (Manual) Lymphocytes % (Manual) Monocytes % (Manual) Eosinophils % (Manual) Basophils % (Manual) Abs Neuts (Manual) Differential Comment Platelet Estimate Platelet Morphology RBC Morphology PT INR APTT Sodium Potassium Chloride Carbon Dioxide Anion Gap BUN Creatinine Estimated GFR POC Glucose Random Glucose Lactic Acid 3.2 H 1.6 Calcium Phosphorus Magnesium Total Bilirubin AST ALT Alkaline Phosphatase Troponin I Total Protein Albumin Prealbumin Nasal Screen MRSA (PCR) Not detected 07/14/18 07/14/18 07/14/18 04:36 04:36 04:36 WBC 22.9 H RBC 3.83 L Hgb 11.2 L Hct 34.7 L MCV 90.6 MCH 29.3 MCHC 32.4 RDW 14.8 Plt Count 351 MPV 6.3 L Prelim Diff (Auto) Slide review pending Neut % (Auto) 85.1 H Lymph % (Auto) 4.9 L Norton % (Auto) 9.7 H Eos % (Auto) 0.1 Baso % (Auto) 0.2 Neut # (Auto) 19.5 H Lymph # (Auto) 1.1 Norton # (Auto) 2.2 H Eos # (Auto) 0.0 Baso # (Auto) 0.0 WBC Differential Manual diff final Seg Neuts % (Manual) 89 H Lymphocytes % (Manual) 4 L Monocytes % (Manual) 5 Eosinophils % (Manual) 1 Basophils % (Manual) 1 Abs Neuts (Manual) 20.4 H Differential Comment . Platelet Estimate Normal Platelet Morphology Normal RBC Morphology Normal PT 11.0 INR 1.1 APTT 28.2 Sodium 143 Potassium 4.1 Chloride 108 H Carbon Dioxide 25.4 Anion Gap 10 BUN 18 Creatinine 1.17 Estimated GFR 62 L POC Glucose Random Glucose 135 H Lactic Acid Calcium 8.1 L D Phosphorus 3.7 Magnesium 2.1 Total Bilirubin 0.5 AST 10 L ALT 12 Alkaline Phosphatase 147 H Troponin I Total Protein 7.1 D Albumin 2.9 L Prealbumin 13 L Nasal Screen MRSA (PCR) 07/14/18 07/14/18 04:36 08:00 WBC RBC Hgb Hct MCV MCH MCHC RDW Plt Count MPV Prelim Diff (Auto) Neut % (Auto) Lymph % (Auto) Norton % (Auto) Eos % (Auto) Baso % (Auto) Neut # (Auto) Lymph # (Auto) Norton # (Auto) Eos # (Auto) Baso # (Auto) WBC Differential Seg Neuts % (Manual) Lymphocytes % (Manual) Monocytes % (Manual) Eosinophils % (Manual) Basophils % (Manual) Abs Neuts (Manual) Differential Comment Platelet Estimate Platelet Morphology RBC Morphology PT INR APTT Sodium Potassium Chloride Carbon Dioxide Anion Gap BUN Creatinine Estimated GFR POC Glucose 140 H Random Glucose Lactic Acid 0.7 Calcium Phosphorus Magnesium Total Bilirubin AST ALT Alkaline Phosphatase Troponin I Total Protein Albumin Prealbumin Nasal Screen MRSA (PCR) Microbiology 07/13/18 19:00 Abscess - Chest Gram Stain - Final - Imaging Impressions Chest X-Ray 07/13/18 18:24 CONCLUSION: 1. Intact median sternotomy wires. 2. Mild bibasilar airspace disease, likely atelectasis. Chest CT 07/13/18 18:26 CONCLUSION: 1. Scattered areas of suspected atelectasis or consolidation as described above being more prominent on the left. 2. Induration in subcutaneous fat anteriorly over the sternal region. This can be correlated with the timing of the prior sternotomy. A focal fluid collection or abscess is not seen. 3. Nonspecific mildly prominent lymph node in the left tracheobronchial region. It is thought this could be followed. 4. Mild hiatal hernia. Assessment and Plan - Plan Mr. Palmer is a pleasant 68-year-old male with a history of coronary artery disease, diabetes mellitus who was admitted to the hospital due to sternal wound infection. Patient underwent coronary artery bypass graft surgery in June 2018. He came to [place] for vacation. He noted an open wound with some drainage of purulent material which prompted him to seek medical attention. He had CABG surgery in [facility]. Acute sternal wound infection CAD status post CABG June 2018 -Continue cefepime 2 g every 12 hours, vancomycin. -Infectious disease consulted. -We may need cardiothoracic surgery to get on board as well. -Continue carvedilol 6.25 mg BID, atorvastatin 80 mg p.o. daily Diabetes mellitus -Patient takes Janumet at home. -We will continue sliding scale insulin as well as Levemir 15 units daily. Hypertension -We will continue nifedipine 30 mg daily. Depression - continue duloxetine 20 mg p.o. twice daily Full code. Lovenox.
--- NOTE | 2018-07-14 13:35 | MB ---
cc: Wilber Lynn MD DATE: 07/14/2018 REQUESTING PHYSICIAN: Dr. Alanis. REASON: Sternal wound infection. HISTORY OF PRESENT ILLNESS: This is a 68-year-old white male who underwent coronary artery bypass graft surgery x4 in [place], [place] 5 weeks ago. The patient came down to [place] on vacation. He developed drainage coming from the sternal wound 2 days ago and then after that, he started having some chest pain, particularly when he twists his upper body. He was seen in the Urgent Care Facility 2 days ago and was put on Bactrim. He went back to the Urgent Care Center again and was referred to the Emergency Department here at [place] for evaluation. The patient denies other symptoms. His temperature is normal. His white blood cell count; however, is elevated. It climbed from 16.6 yesterday to 22.9 today. Blood cultures were obtained yesterday and the results are pending. Wound culture from the sternum has been obtained and it is pending. The Gram stain shows gram positive cocci in pairs and clusters. The patient has been started on antibiotics. He is currently comfortable and in no distress. PAST MEDICAL HISTORY: Hypertension, type 1 diabetes mellitus, sleep apnea, anxiety, depression, history of kidney stones. ALLERGIES: PENICILLIN, NEOMYCIN, POLYMYXIN, B-BACITRACIN. MEDICATIONS: 1. Vancomycin. 2. Cefepime. 3. Coreg. 4. Cymbalta. 5. Lovenox. 6. Dilaudid. 7. Insulin. 8. Mable-Colace. 9. Restoril. SOCIAL HISTORY: The patient is . SOCIAL HISTORY: The patient smoked a pack and half of cigarettes up until surgery in June 2018. No alcohol. No illicit drugs. FAMILY HISTORY: Noncontributory. REVIEW OF SYSTEMS: CONSTITUTIONAL: Denies fever or chills. HEAD, EARS, EYES, NOSE AND THROAT: Denies difficulty with vision. No blurring or diplopia. No nasal drainage or bleeding. No difficulty swallowing. No soreness of the throat. No neck swelling or neck pain. CARDIOVASCULAR: No palpitations. MUSCULOSKELETAL: Positive for musculoskeletal chest pain. RESPIRATORY: Denies cough or shortness of breath. GASTROINTESTINAL: Denies nausea, vomiting, abdominal pain or diarrhea. GENITOURINARY: Denies urgency, frequency, dysuria. HEMATOPOIETIC: Denies easy bruising or bleeding. MUSCULOSKELETAL: Significant for chest pain. Denies joint pain. ENDOCRINE: Denies polyuria or polydipsia. HEMATOLOGIC: Denies easy bruising or bleeding. NEUROLOGIC: Denies problems of coordination or gait. PSYCHIATRIC: Significant for anxiety. PHYSICAL EXAMINATION: GENERAL: This is a moderately obese male who is in no acute distress. He is awake and alert and oriented. VITAL SIGNS: Temperature 99.2, BP 145/67, respirations 24, heart rate is 92. HEENT: Head is atraumatic. Extraocular movements are grossly intact. Pupils reactive to light, without icterus. No conjunctival erythema. Oropharynx: Moist mucosa. No visible lesions. NECK: Supple. No swelling or adenopathy. LUNGS: Decreased breath sounds bilaterally. HEART: Regular S1 and S2. No murmurs heard. CHEST: Erythema along with the surgical incision at the upper chest and mild swelling at the incision; also, mild warmth. ABDOMEN: Bowel sounds present. Soft, obese, nontender. RECTAL: Not performed. EXTREMITIES: No clubbing, cyanosis or edema. SKIN: No diffuse rash. NEUROLOGIC: No gross focal finding. PSYCHIATRIC: The patient is calm and cooperative. LABORATORY DATA: WBC 22.9, platelets 351, hemoglobin 11.2, 85% neutrophils, 4% lymphocytes. Creatinine 1.17, estimated GFR 62. Sodium 143. IMAGIN. Chest x-ray shows mild bibasilar airspace disease. 2. CT scan of the chest shows induration in the subcutaneous fat over the sternal region. ASSESSMENT AND PLAN: 1. Postoperative sternal wound infection. 2. Status post coronary artery bypass graft surgery x4 in June 2018. 3. Leukocytosis secondary to infection. Likely possibility for infection is Staph aureus and possibly streptococcal bacteria. RECOMMENDATIONS: 1. Continue vancomycin. 2. Continue cefepime. 3. Monitor the wound culture for antibiotic change or adjustment. 4. Monitor white blood cell. 5. Cardiothoracic Surgery evaluation to determine need for surgical drainage if necessary. I will monitor the patient's clinical status in addition to monitoring the cultures and laboratory data, and will make further recommendations upon followup. Wilber Lynn MD FFNoe/lani , 12:26 PM , 12:40 PM
[2018-07-14] MEDS: Vancomycin Inj 2,000 MG in Sodium Chlor 0.9% Inj 500 ML IV.SIG SCH (15:16)
--- NOTE | 2018-07-14 15:51 | MB ---
cc: Cristina Isbell DATE: 07/14/2018 HISTORY OF PRESENT ILLNESS: A 68-year-old male who is down here on vacation from [place], [place]; history of recent coronary artery bypass graft x4 06/07/2018 at [facility] in [place], [place] by Dr. Chilango Edouard, Cardiothoracic Surgery, Dr. Robledo, Cardiology and was cleared to travel and came down here for vacation when he noticed some pain around the lower part of his sternal incision. He went to an Urgent Care where they started him on some Bactrim. He went back again because he had some pain increasing to that area and also noticed some purulent drainage. He presented with a white cell count of 16, which is now 22.9 with a left shift. Denied any fevers or chills. Denies any overactivity; has been following his sternal precautions. Denied having any problems postoperatively other than having a right kidney stone, which he had a kidney stone retrieval 07/04/2018. They did right endovascular and in that site looks good. He noticed a 2 cm x 2 cm area open at the lower portion of his sternum with some purulent drainage, superficial. CT scan was completed which showed some induration of subcutaneous fat along the sternal region. There was no focal collection or abscess noted. PAST MEDICAL HISTORY: Includes coronary artery disease, history of kidney stones, hypertension, obstructive sleep apnea, type 2 diabetes on oral medication, morbid obesity. PAST SURGICAL HISTORY: Coronary artery bypass graft x4 06/07/2018; right kidney stone retrieval 07/04/2018. Prior to that, he had a heart catheterization. ALLERGIES: INCLUDE BACITRACIN, NEOMYCIN PENICILLINS, POLYMYXIN. HOME MEDICATIONS: Include: 1. Sitagliptin/metformin. 2. Bactrim 3. Atorvastatin. 4. Coreg. 5. Duloxetine. 6. Nifedipine. FAMILY HISTORY: Mother still alive. Father at 89 from complications of heart disease after heart surgery. SOCIAL HISTORY: The patient is , no children. Smoked for 55 years, up to 2 packs; quit 06/01/2018. No alcohol. Works still as a gun salesman. REVIEW OF SYSTEMS: GENERAL: No night sweats, fever, heat or cold intolerance. SKIN: No psoriasis, itching or hives. HEENT: No blurred vision, hearing loss. RESPIRATORY: Chronic shortness of breath, no chest pain. No paroxysmal nocturnal dyspnea. No orthopnea. He has had some drainage from his sternal wound for the last 2 days. GASTROINTESTINAL: No diarrhea or vomiting. GENITOURINARY: No burning, frequency, urgency. CENTRAL NERVOUS SYSTEM: No history of TIA, CVA or seizure disorder. ENDOCRINOLOGY: Positive for diabetes. PHYSICAL EXAMINATION: VITAL SIGNS: Blood pressure 130/60, heart rate of 98, temperature T-max 99.2. GENERAL: The patient is awake, alert, sitting up in the chair. HEENT: Head is normocephalic, atraumatic. Pupils equal and reactive. Oral mucosa pink, moist. NECK: Supple. No JVD. CARDIOVASCULAR: Heart sounds S1, S2. Regular rate and rhythm. CHEST: He has got some erythema along the distal portion of the surgical incision and he has got some purulent cagle colored drainage; approximately a 2-inch in length diameter superficial, which was viewed and examined by Dr. Dipika Cortez, who drained a small air pocket of some fluid. ABDOMEN: Obese, soft, nontender. EXTREMITIES: Trace edema. He has got some right endovascular scars to his right lower leg that are healing well and well approximated. LABORATORY DATA: Lab work shows hemoglobin of 11, hematocrit of 34, white cell count of 22, platelet count of 351. Sodium 143, potassium 4.1, BUN of 18, creatinine 1.17. IMPRESSION: This is a 68-year-old male, visiting from the [place] area, status post coronary artery bypass graft x4, 06/07/2018 at [facility] by Dr. Chilango Edouard. The patient has a sternal wound infection with some dehiscence in the lower portion of the sternum. The proximal and mid portion of the sternum is without any clicks or movement. He does have some purulent material from the lower portion of the sternum which is again we evaluated by Dr. Dipika Cortez. The site was irrigated with normal saline. A Prevena dressing was placed to vacuum seal. PLAN: At this point, await further cultures; wound and blood cultures. Continue IV therapy with cefepime and vancomycin. He is also being treated for his bypass surgery with statin, beta janene, aspirin. Further planning as per Dr. Dipika Cortez. If this can be treated clearly with just antibiotics and the Prevena, he can be discharged back to [place] where he has a followup appointment with his cardiothoracic surgeon on Wednesday to be further evaluated for any further procedures. MOLLY Blankenship MD JRT/lani , 03:09 PM , 03:22 PM
[2018-07-15] MEDS: HYDROmorphone PF Inj 2 MG/ML Vial IV.PUSH PRN (01:43)
[2018-07-15] MEDS: Chlorhexidine Gluconate 2% 1 Pack (2 Cloths) TOPICAL SCH (06:53)
[2018-07-15] MEDS: Vancomycin Inj 2,000 MG in Sodium Chlor 0.9% Inj 500 ML IV.SIG SCH (08:52)
[2018-07-15] MEDS: Senna/Docusate Sodium 8.6/50 MG Tablet PO SCH (08:53)
[2018-07-15] MEDS: Insulin NovoLOG Aspart Correctional Sugar Inj SQ SCH (08:54)
[2018-07-15] MEDS: Insulin Detemir Inj 1,000 UNIT/10 ML Vial SQ SCH (08:54)
[2018-07-15] MEDS: Carvedilol 6.25 MG Tablet PO SCH (08:54)
[2018-07-15 09:52] LABS: Baso % (Auto) 0.2 % (0.0-2.0); Eos # (Auto) 0.1 th/mm3 (0.0-0.4); Eos % (Auto) 0.4 % (0.0-4.0); Lymph # (Auto) 0.9 th/mm3 (1.0-4.8); Lymph % (Auto) 4.9 % (9.0-44.0); Mean Corpuscular HGB Conc 33.4 % (32.0-36.0); Mean Corpuscular Hemoglobin 29.9 pg (27.0-34.0); Mean Corpuscular Volume 89.6 fL (80.0-100.0); Mean Platelet Volume 6.5 fL (7.0-11.0); Mono # (Auto) 1.5 th/mm3 (0.0-0.9); Mono % (Auto) 8.1 % (0.0-8.0); Neut # (Auto) 15.9 th/mm3 (1.8-7.7); Neut % (Auto) 86.4 % (16.0-70.0); Platelet Count 341 th/mm3 (150-450); Red Blood Count 3.68 mil/mm3 (4.50-5.90); Red Cell Distribution Width 14.9 % (11.6-17.2); White Blood Count 18.4 th/mm3 (4.0-11.0)
--- NOTE | 2018-07-15 10:41 | P.DS ---
Date of admission: 07/13/18 21:28 Primary care physician: No Primary Care Physician Attending physician on discharge: Oracio Malloy Anticipated date of discharge: 07/15/18 Brief History from admission: 68-year-old male the presents for evaluation of possible infection to his chest. Per patient this started on Wednesday. Per patient he was seen in urgent care and started on Bactrim and antibiotic ointment. Per patient he continued to get worse so he went to the urgent care again today and told to come here. He has a significant history of CABG x4 in the beginning of June 07, 2018. He states that his been doing well since except he had a kidney stone that had to be removed a week ago. He states that overall he has been doing well and he was cleared by his doctors to come here today told to splint application. Per patient he came here on Wednesday and ever since his been doing well except until Wednesday when the wound open it on his mid chest where he had a sternotomy. He states that it is slightly painful and there is purulent material coming out of it. Patient the pain is 4 out of 10. Per patient he has no fevers chills or sweats. He does have more discomfort in his chest. He states that the surgery was done [place] and he is currently visiting here for medication. No other medical issues at this time. No fevers chills or sweats. Patient update on day of discharge: Patient is currently doing well. Wants to go home. ID and CV surgery both are okay for patient to be discharged with close follow up with his CV surgeon. DS: Medications - Discharge Medications Prescriptions: cephalexin [Keflex] 500 mg PO QID 10 Days #40 cap DS: Summary Hospital Course: Mr. Palmer is a pleasant 68-year-old male with a history of coronary artery disease, diabetes mellitus who was admitted to the hospital due to sternal wound infection. Patient underwent coronary artery bypass graft surgery in June 2018. He came to [place] for vacation. He noted an open wound with some drainage of purulent material which prompted him to seek medical attention. He had CABG surgery in [facility]. Acute sternal wound infection CAD status post CABG June 2018 -Continued cefepime 2 g every 12 hours, vancomycin. -Infectious disease consulted. -CV surgery placed Prevena dressing on 07/14/2018. -Continue carvedilol 6.25 mg BID, atorvastatin 80 mg p.o. daily Diabetes mellitus -Patient takes Janumet at home. -We will continue sliding scale insulin as well as Levemir 15 units daily. Hypertension -We will continue nifedipine 30 mg daily. Depression - continue duloxetine 20 mg p.o. twice daily Full code. Lovenox. Patient was on cefepime and vancomycin. I discussed with infectious disease on the day of discharge. Infectious disease recommended Keflex p.o. Cardiothoracic surgery recommended close follow-up with patient's cardiothoracic surgeon. Patient has an appointment with his cardiothoracic surgeon in [facility] on 07/19/2018. Infectious disease also recommended very close follow-up with either the surgeon or emergency room within the next 1-2 days. Patient verbalized understanding. We will discharge him home today. - Time Spent with Patient Total time spent providing and/or coordinating discharge services: Less than 30 minutes - Quality: VTE Deep Vein Thrombosis/Pulmonary Embolism Present on Admission: No Exam Vital signs: Vital Signs 07/14/18 12:00 07/14/18 14:19 07/14/18 16:00 Temperature 98.1 F 97.7 F Pulse Rate 84 86 86 Respiratory Rate 20 16 32 H Blood Pressure 118/62 130/67 Pulse Oximetry 94 L 95 07/14/18 18:00 07/14/18 19:00 07/14/18 19:01 Temperature Pulse Rate 86 98 H 100 H Respiratory Rate 22 27 H Blood Pressure 119/62 Pulse Oximetry 90 L 90 L 07/14/18 20:00 07/14/18 20:04 07/14/18 21:00 Temperature 100.0 F H Pulse Rate 94 H 92 H 86 Respiratory Rate 27 H 16 8 L Blood Pressure 147/74 H 140/65 Pulse Oximetry 96 96 94 L 07/14/18 22:00 07/14/18 22:07 07/14/18 22:44 Temperature Pulse Rate 84 91 H 99 H Respiratory Rate 16 20 29 H Blood Pressure 146/66 H 152/69 H Pulse Oximetry 93 L 94 L 93 L 07/14/18 23:00 07/14/18 23:01 07/15/18 00:00 Temperature 98.5 F Pulse Rate 89 89 95 H Respiratory Rate 17 17 35 H Blood Pressure 137/58 L Pulse Oximetry 94 L 94 L 90 L 10/12/18 00:07 07/15/18 01:00 07/15/18 01:38 Temperature Pulse Rate 94 H 83 90 Respiratory Rate 22 21 19 Blood Pressure 133/71 128/62 121/58 L Pulse Oximetry 94 L 97 96 07/15/18 02:00 07/15/18 03:00 07/15/18 04:00 Temperature 99 F Pulse Rate 82 84 85 Respiratory Rate 16 16 18 Blood Pressure 109/58 L 124/58 L 127/67 Pulse Oximetry 94 L 95 95 07/15/18 05:00 07/15/18 06:00 07/15/18 07:00 Temperature Pulse Rate 84 82 85 Respiratory Rate 18 18 16 Blood Pressure 121/65 127/71 Pulse Oximetry 96 97 96 Intake & Output 07/14/18 07/15/18 07/15/18 18:59 06:59 18:59 Intake Total 600 / 600 980 / 980 Output Total 500 / 500 700 / 700 Balance 100 / 100 280 / 280 Weight 119.8 kg Intake: IV 620 / 620 Maxipime Inj 2,000 MG In NS Inj 100 / 100 100 ML @ 200 mls/hr IV.SIG Q12H [facility] Rx#:[id number] Vancomycin Inj 2,000 MG In NS 520 / 520 Inj 500 ML @ 250 mls/hr IV.SIG Q18H [facility] Rx#:[id number] Oral 600 / 600 360 / 360 Output: Urine 500 / 500 700 / 700 Other: Date of Last Bowel Movement 07/14/18 # Bowel Movements 1 0 Narrative: GENERAL: Alert, oriented x3, NAD. SKIN: Warm and dry. Prevena dressing on. HEAD: Normocephalic. EYES: No scleral icterus. No injection or drainage. NECK: Supple, trachea midline. No JVD or lymphadenopathy. CARDIOVASCULAR: Regular rate and rhythm without murmurs, gallops, or rubs. RESPIRATORY: Breath sounds equal bilaterally. No accessory muscle use. GASTROINTESTINAL: Abdomen soft, non-tender, nondistended. MUSCULOSKELETAL: No cyanosis, or edema. BACK: Nontender without obvious deformity. No CVA tenderness. Results Procedures completed during hospitalization: A Prevena dressing placement 07/14/2018. Labs on day of discharge: Labs from last 24 hours 07/15/18 07/15/18 07/14/18 09:36 08:50 21:14 WBC 18.4 H RBC 3.68 L Hgb 11.0 L Hct 33.0 L MCV 89.6 MCH 29.9 MCHC 33.4 RDW 14.9 Plt Count 341 MPV 6.5 L Neut % (Auto) 86.4 H Lymph % (Auto) 4.9 L [place] % (Auto) 8.1 H Eos % (Auto) 0.4 Baso % (Auto) 0.2 Neut # (Auto) 15.9 H Lymph # (Auto) 0.9 L [place] # (Auto) 1.5 H Eos # (Auto) 0.1 Baso # (Auto) 0.0 WBC Differential . Differential Comment Auto diff final POC Glucose 139 H 197 H 07/14/18 07/14/18 16:20 13:13 WBC RBC Hgb Hct MCV MCH MCHC RDW Plt Count MPV Neut % (Auto) Lymph % (Auto) [place] % (Auto) Eos % (Auto) Baso % (Auto) Neut # (Auto) Lymph # (Auto) [place] # (Auto) Eos # (Auto) Baso # (Auto) WBC Differential Differential Comment POC Glucose 131 H 125 H Preliminary micro results at discharge 07/13/18 19:00 Wound Culture - Preliminary Abscess - Chest Staphylococcus aureus 07/13/18 18:50 Aerobic Blood Culture - Preliminary Blood - Peripheral No growth in 1 day Anaerobic Blood Culture - Preliminary gram positive cocci 07/13/18 19:00 Aerobic Blood Culture - Preliminary Blood - Peripheral No growth in 1 day Anaerobic Blood Culture - Preliminary No growth in 1 day - Impressions ITS Impressions Chest X-Ray 07/13/18 18:24 CONCLUSION: 1. Intact median sternotomy wires. 2. Mild bibasilar airspace disease, likely atelectasis. Chest CT 07/13/18 18:26 CONCLUSION: 1. Scattered areas of suspected atelectasis or consolidation as described above being more prominent on the left. 2. Induration in subcutaneous fat anteriorly over the sternal region. This can be correlated with the timing of the prior sternotomy. A focal fluid collection or abscess is not seen. 3. Nonspecific mildly prominent lymph node in the left tracheobronchial region. It is thought this could be followed. 4. Mild hiatal hernia. Discharge Plan - Discharge Disposition Patient Disposition: 01 Discharge Home - Discharge Condition Condition: Good - Discharge Order Discharge Orders: Discharge Order (Routine); Ordered 07/15/18 Ordered By: Oracio Malloy - Discharge Details Anticipated Discharge Date: 07/15/18 - Physicians Team Primary Care Provider: Primary Care Rissa Degroot Attending Provider: Oracio Malloy Other Providers: Wilber Lynn MD ; Dipika Cortez MD
[2018-07-15 10:46] VITALS: BP 131/60; TEMP 97.9
[2018-07-15 11:16] VITALS: PULSE 81; RESP 28; O2SAT 96
[2018-07-16] MEDS ORDERED: Pharmacy Ordered Lab Info OTHER ONE (01:45)
== END 2018-07-15 12:15 | disposition home or self-care (01) ==
LOC: NEPE 14:35 → NEDA 21:28 → HIMC 23:00
PROVIDERS: ADMIT Hospitalist; ATTEND Hospitalist